=== PATIENT | female | born 1960 | race Caucasian/White ===

== ENCOUNTER 2019-01-23 14:30 | Inpatient (IN) | payer OTHER ==
[~2019-01-23] VITALS: Ht 162.6 cm; Wt 88.5 kg
[~2019-01-23 14:30] MED LIST: ASPIRIN325 PO; COPAXONE20 MG/SYR PO; EC-NAPROSYN500 M1 PO; FLEXERIL PO; GABAPENTIN 100100 MG PO; GLATIRAMER20 MG/1 ML SUBQ; IBU800 MG PO; IBUPROFEN 200200 M1 PO; LASIX 20 MG TAB20 MG PO; LEVAQUIN 500 M500 M3 PO; LISINOPRIL10 MG PO; LISINOPRIL20 MG PO; MEDROLDOSEPACK PO; NEURONTIN 300M300 M2 PO; NEURONTIN300 MG PO; OMEPRAZOLE40 MG PO; PRILOSEC 20 MG20 MG PO; PROAIR HFA8.5 GM INH; PROMETHAZINE V473 ML PO; TESSALON PERLE100 MG PO; TRAZODONE 150150 M1 PO; TRAZODONE HCL100 MG PO; TYLENOL P.M. E1 EAC3 PO; TYLENOL PM EX-1 EACH PO; VALIUM5 MG PO; VITAMIN D400 UNI1 PO; ZOLOFT 50 MG TA50 M1 PO
--- NOTE | 2019-01-23 17:41 | NUR ---
THE PATIENT IS A 58 Y.O FEMALE PRESENTED TEARFUL AND EMOTIONAL ABOUT BEING HERE. SHE WAS GIVEN ASSURANCE BY STAFF THAT SHE WAS GOING TO BE ALRIGHT. SHE LEFT HER GLASSES AT HOME AND SAID THAT SHE CAN HARDLY SEE AND WILL CALL HOME TOMORROW FOR HER FAMILY MEMBER TO BRING THEM TO HER. SHE WAS DISHEVELED AND SHE ASKED FOR A CLEAN GOWN. THE FIRE DEPARTMENT TRANSPORTED HER TO THE HOSPITAL. SHE WAS GLAD TO BE HERE. SHE WAS SUFFERING MENTAL STATUS CHANGES BECAUSE OF ALL THE PROBLEMS AT HOME. SHE IS INDEPENDENT AND AMBULATES WITH A STEADY GAIT. SHE HAS BATH ROOM PRIVILEGES. THE PATIENT IS ON A REGULAR DIET BUT DID NOT EAT DINNER THIS EVENING. SHE STATED SHE DID NOT LIKE THE FOOD THAT WAS SERVED. SHE IS RESTING IN BED AT THIS TIME. ORIENTED X4. CALM, COMPLIANT AND COOPERATIVE. QUIET AND COOPERATIVE.
[2019-01-23 20:00] VITALS: BP 174/82
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
[2019-01-24 03:05] VITALS: BP 174/82
--- NOTE | 2019-01-24 05:53 | NUR ---
SLEPT 6.8 HOURS OVERNIGHT. HAD BM ON THE MORNING OF 01/24.
[2019-01-24 08:58] VITALS: BP 152/81
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
[2019-01-24 20:08] VITALS: BP 149/74
[2019-01-24] MEDS ORDERED: TAPAZOLE10 MG PO (21:44)
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
--- NOTE | 2019-01-25 00:51 | NUR ---
Care assumed of patient at 1915: Patient sitting in day room at start of shift. Patient alert and oriented x4. Patient was tearful at the start of the shift. Patient reported to nurse that she is feeling stressed about needing to take care of her mother and her mother's home. Also reporting that she is sad watching and observing other patients on the unit. Patient was able to speak one on one with nurse and appeared to be feeling better afterwards. Patient was then happy, smiling, interactive with staff. Patient labile throughout the evening. Patient sat in the dayroom and did not isolate self to her room this evening. Patient did report that she takes Methimazole 5mg po daily when at home. SYDNIE Burgos notified. Orders obtained for thyroid panel in AM. Also noted that Dr. Easton has ordered other labs for the AM. Med rec updated to include reported medication. MD will eval medication need after labs obtained. Patient also reported that she has an inhaler at home to use for seasonal allergies. SYDNIE Burgos also ordered PRN nebulizer treatments. Patient did receive nebulizer treatment from RT and reported that she felt "much better". Patient took medication whole without difficulty. Ate 100% HS snack. Denies SI/HI/AH/VH. No s/s of delusional or paranoia behaviors. However, information obtained from patient this shift and information in H&P does not appear to match. Patient reports that she has not smoked cigarettes for the past 3 months. She is proud of herself for this. Patient was able to retire to bed around 2230. Patient provided nurse with her request for lunch tomorrow. Patient educated that she can provide her requests to the nurse during breakfast or morning groups. Patient informed nurse that she sleeps through breakfast and morning groups and only gets up before lunch due to her MS. Patient strongly encouraged that she will need to attend all groups. Patient seemed frustrated with encouragement but was not aggressive.
[2019-01-25 09:50] VITALS: BP 158/79
[2019-01-25 11:39] VITALS: BP 158/79
--- NOTE | 2019-01-25 15:50 | NUR ---
THE PATIENT HAS BEEN VERY QUIET AND COOPERATIVE. SHE HAS BEEN SITTING IN THE DAY ROOM WATCHING TV AND ATTENDING THE GROUPS. SHE ALSO IS VERY FRIENDLY INTERACTING WITH STAFF AND TALKING TO THE OTHER PATIENTS. SHE DENIES SI AND HI. SHE IS AMBULATORY WITH A STEADY GAIT AND HAVE BRP. THE PATIENT IS INDEPENDENT. SHE IS QUITE PLEASANT AND ASK TO HELP WITH THE OTHER PATIENTS BUT STAFF TELLS HER SHE CANNOT HELP US. CONTINUE TO MONITOR THE PATIENT.
[2019-01-25 19:23] VITALS: BP 143/87
[2019-01-25 23:32] VITALS: BP 158/79
--- NOTE | 2019-01-26 03:07 | NUR ---
PT OUT IN DAY AREA AT BEGINNING OF SHIFT. AFTER SNACKS, PT TOOK HS MEDS W/O PROBLEM. QUIET AND COOPERATIVE. LITTLE INTERACTION WITH STAFF OR PEERS. COMMUNICATES ONLY WHEN SHE NEEDS SOMETHING. AFFECT ANIMATED. HAS SLEPT WELL THROUGH THE NIGHT.
[2019-01-26 08:58] VITALS: BP 143/72
[2019-01-26 09:07] LABS: HIV ANTIBODY Non Reactive (Non Reactive)
--- NOTE | 2019-01-26 13:03 | NUR ---
Nutrition: Pt assessed due to consult received for pt request (interested in other food choices). Admitted: unspecified psychosis. Pt is not liking the meals. Met in day area to individualize future meals. Brainstormed desired changes to the next 3 meals (dinner 01/26, breakfast and lunch 01/27). Plan includes a variety of chicken salad/PB&J sandwiches with other sides like cottage cheese, banana, yogurt, etc. Pt requests yogurt with every meal, or at least BID with lunch and dinner. Pt very thankful for RD time. No appetite issues otherwise. Will remain low nutrition risk.
--- NOTE | 2019-01-26 17:00 | NUR ---
FULL RANGE AFFECT-DENIES SI/SH/HI. ATTENDING SCHEDULED ACTIVITIES-DENIES C/0 PAIN/DISCOMFORT. GAIT STEADY WITHOUT ASSISITVE DEVICES
--- NOTE | 2019-01-26 17:37 | NUR ---
[employer] came today to screen pt for Medicaid. SW team will continue to follow pt during her stay.
[2019-01-26 19:58] VITALS: BP 156/71
--- NOTE | 2019-01-27 00:13 | NUR ---
Care assumed of patient at 1915: Patient sitting in dayroom at start of shift. Patient alert and oriented x4. Patient has been reviewing her d/c paperwork that she states the doctor provided her. Patient also coloring and working on word search puzzles. Patient happy, smiling. Patient interactive with staff appropriately. Patient took HS medication whole without difficulty. Patient denies SI/HI/AH/VH/anxiety/depression. No s/s of delusional or paranoia behaviors. Patient reports that she is going home tomorrow and is excited about that. Patient up ad lizzeth without assistive devices and completes ADLs independently. Patient ate 100% HS snack. Patient did request PRN nebulizer treatment which was provided by RT. Lungs CTA to all lobes, no cough present. Patient upset with staff when TV was turned down at 10pm but was easily re-directed. Patient is still awake, working on word search puzzles in dayroom. Patient declines needing any medication to help her sleep and states that she usually stays up late and sleeps in until around noon.
[2019-01-27 09:15] VITALS: BP 156/71
--- NOTE | 2019-01-27 15:45 | NUR ---
SW and psych doctor contacted pt's son and DPOA Song Richards to discuss discharge planning. The psych doctor explained that it would not be a good plan for pt to go home where she lives with 14 cats and her boyfriend who she has identified as an alcoholic. The psych doctor also advised against her living with her mom since her mom has great care needs also. WP agreed. He said he will take the weekend to come up with a plan. SW team will continue to follow pt during her stay.
[2019-01-27 17:10] LABS: SYPHILIS AB Non Reactive (Non Reactive)
--- NOTE | 2019-01-27 18:15 | NUR ---
PT. SITTING ON THE UNIT MUCH OF THE AFTERNOON. SHE WAS COLORING AND TALKING WITH HER NEW ROOMMATE. SHE ALSO ATTENDED GROUPS.
[2019-01-27 20:26] VITALS: BP 145/77
--- NOTE | 2019-01-27 22:17 | NUR ---
Care assumed of patient at 1915: Patient sitting in dayroom at start of shift. Patient coloring and watching TV. Patient alert and oriented x4. Patient smiling and happy. Patient interacting well with staff and other patients. Patient is extremely happy that she received a new roomate today. Patient going about the unit to other staff introducing her new roomate. Almost hyperactive to an extent. Patient denies pain or discomfort. Patient did request PRN nebulizer treatment due to the "dry atmosphere". Patient denies SI/HI/AH/VH. Denies anxiety or depression. No s/s of delusional or paranoia behaviors. Patient independent with ADL completion. Patient has a packet that includes part of her medical record that she takes around with her. Patient did ask for her labs to be printed for her so she could add them to her "book". Observed that patient has numerous writings on several pages that did not make sense to this nurse. Patient stated "oh, it's just my notes". Patient took HS medication without difficulty. Ate 100% HS snack. Patient reitred to bed at a reasonable hour this evening and is currently resting in bed.
[2019-01-28 07:45] VITALS: BP 132/81
--- NOTE | 2019-01-28 12:53 | NUR ---
Has been up in dayroom, she is alert and oriented x4, she is smiling and somewhat hyperverbal, she is cooperative with cares, med christa perkins, Dr. Easton here, new orders received for her thyroid meds, called her home pharmacy to verify her meds, especially for thyroid meds, she eats well and has attended groups today. Continue to monitor for safety and behaviors.
--- NOTE | 2019-01-28 19:56 | NUR ---
1545 Report received from ANTHONY Smith at approximately 1500. Prior to that pt. had been in day room relaxing and visiting with peers/staff. Conversive without s/o distress. construction secretary reports that pt was in her room with back pain and was in bathroom very upset and crying. I went to assess her and she was visibly upset, crying and stating that she had back pain that went across her upper back and rated it a 9/10. Moved to bed and she stated that she has not been getting all her medications for her thyroid since she has been here and that she has noticied for the past several days she has had tingling in her left arm and now she is having pain that starts in her R shoulder and goes around her mid and upper back. BP per L arm 182/82 with HR 76 and regular per auscultation. Repeat BP 149/75. As I was assessing her she stated she wanted to go to the ER ana m. Something wasn't right. "It's my right to go to the ER." Behavior and pain escalated with her stating pain was a 9 and repeatedly demanding to go to the ER. Dr. Easton and nursing coagulating drying supervisor notified. Stat EKG ordered with labs. Nursing coagulating drying supervisor notified Dr. Lou who ordered Morphine and nitroglycerine. Pt. allergic to morphine so not administered. Pt. states pain much worse and that she is very frightened. Nitroglycerine given by nursing coagulating drying supervisor/support RN at 1544 BP 139/82 with HR 90s per pulse ox and sats 97-100%. Unable to obtain EKG d/t persistent shaking of R arm and severe anxiety. 1550: BP 126/72, HR 103, sat 97% and RR40. Spoke with Dr. Easton and obtained order for Ativan 2mg IM and Ondansetron 4 mg IM due to nausea. Pt. requesting to go to ER multiple times. 1700 Pt demanding to go to ER and speak to family multiple times. Ativan and ondansetron given per order. Dr. Easton aware. Obtained EKG which Dr. Easton reviewed and requested to be faxed to ER for them to review. Pt. continues to demand to go to ER and wants to sign out AMA. Dr. Easton and nursing coagulating drying supervisor notified. Dr. Easton states that he wants AMA in writing and then he will institute 72 hr hold. Pt. talked with son and TRISTON and directed them to meet her at the ER. They called lockstitch front maker and told secretary to the vice president that they wanted to be called back with an update. When called phone number provided it was not working. Verified phone number with pt. and she stated it was correct and asked me to call them at another phone number. Continued to monitor patient with 5-15 min BP. Pt.continued to demand to be brought to the ER and wrote note stating that she wanted to go to ER AMA. When Dr. Easton notified he stated that she had too much dementia to leave and would have to stay on unit t/o weekend despite note. Pt. told by son that they wouldn't come since she was not going to ER. Pts demeanor totally changed and she started to make jokes about pain and became very accepting of staying on behavioral health unit. Stated she wanted to go out to dining room to eat dinner. Reports that that pain has decreased to a 6 and continues to spasm. Dr. Lou notified. Toradol order x 1 obtained. 184 Sitting at table without s/o distress conversing with peers and staff.
[2019-01-28 20:04] VITALS: BP 126/61
[2019-01-28 21:15] VITALS: BP 126/61
--- NOTE | 2019-01-29 03:15 | NUR ---
PT OUT IN DAYROOM AND INTERACTING APPROPRIATLY WITH STAFF AND PEERS. ANIMATED AND PLAYFUL WITH STAFF. TOOK HS MEDS ORDERED. NO FURTHER C/O PAIN AT THIS TIME. HAS SLEPT WELL THROUGH THE NIGHT TO THIS POINT IN THE AM.
[2019-01-29 07:35] VITALS: BP 128/68
[2019-01-29 10:08] VITALS: BP 128/68
--- NOTE | 2019-01-29 10:15 | NUR ---
0701 Report received from overnight shift, patient ate breakfast took medication without incidence. Patient cooperative, calm, particpates in groups.
--- NOTE | 2019-01-29 13:19 | EKG ---
[address] [address] ELECTROCARDIOGRAM REPORT Name: [facility] Room #: 520A-A ADM IN M.R.#: [id number] Admission: 01/23/19 Attend Phys: Noble Easton DO Discharge: Date of : 64 Report #: [id number] THIS REPORT FOR: //name// [facility] Test Date: 2019-01-28 Test Time: 16:42:38 Pat Name: [facility] Department: Room: 520A A Gender: F Leather Whitener: Behzad OCONNELL : 1960 Requested By: Noble Lou Order Number: [id number] MD: Feng Barber Measurements Intervals [place] Rate: 83 P: 43 [place]: 111 QRS: 40 QRSD: 89 T: 71 QT: 376 QTc: 442 Interpretive Statements Sinus rhythm Borderline short [place] interval No previous ECG available for comparison Electronically Signed On 01-29-2019 13:19:13 CLIENT SUPPORT COORDINATOR by Feng Barber [email or web address] <ELECTRONICALLY SIGNED> By: Feng Barber MD, [facility] 01/29/19 1319 1642 41 Feng Barber MD, FACC /EPI
[2019-01-29 19:53] VITALS: BP 127/60
--- NOTE | 2019-01-30 00:38 | NUR ---
Care assumed of patient at 1914: Patient seated in day room coloring at start of shift. Patient alert and oriented x4. Patient compliant with nursing assessment. Patient labile and irritable. Patient reported pain 10/10 to her entire body. Reports that receiving her injections for MS is the only thing that helps. Reports that her son is out of town and nobody else is able to bring her Copaxone injection vials. Patient states that PRN Tylenol and Ibuprofen did not help her pain. Patient appears tense, flat, not as happy as she has been over the last couple nights. SYDNIE Martin notified of increased pain. He requested to notify SYDNIE Jones for pain medication management. SYDNIE Jones gave order for [place] PRN. Patient asked which medication is usually helpful in managing her pain. Patient became sarcastic and rude to nurse at that time. Patient re-directed and was provided [place] PRN. At 1 hour follow up, patient stated pain reduced to 8/10, "if that". Patient denies SI/HI/AH/VH. No s/s of delusional or paranoia behaviors. Patient reported that she was having acid reflux and requested medication. Patient offered PRN Mylanta. Patient stated that would cause her to throw up and she needed an injection of Zofran. Educated patient that she can have a pill of Zofran. Patient accepted that. Patient then reported that she was ready for her injection. Nurse questioned patient as to what she was referring too. Patient stated she needed an injection of Ativan to help her sleep because she is anxious. SYDNIE Martin notified and order obtained for Trazodone 50mg po 1x dose now. Patient accepted this medication. Patient complained that nurse gave her bedtime medications too early which is why she can't sleep. Educated patient that this nurse is the one that gave her her medication and it was 2044 when those were administered. Patient then started smiling and apologizing. Patient has been pacing the unit. Needed re-directed to leave her room light off due to her roommate sleeping. Told her she can read in the dayroom if she would like too. Patient agitated, irritable, attention seeking and manipulative this shift. Boundaries required to be set on several occasions. Patient recently retired to bed and was smiling and laughing when she told staff kelly.
[2019-01-30 07:48] VITALS: BP 109/59
[2019-01-30 09:01] VITALS: BP 109/59
--- NOTE | 2019-01-30 10:45 | NUR ---
ASSUMED CARE AT 0700 THIS MORNING. PT. HAS BEEN ON THE UNIT INERACTING APPROPRIATELY WITH PTS. PT. C/O "MS" PAIN GLOBALLY TODAY. MORNING MEDICATIONS GIVEN TO HER. WHEN ASKED ABOUT HER PAIN SHE GAVE A WINK AND A NOD AND STATED, "I'M GOING HOME TODAY AND I WILL TAKE CARE OF IT". STATED HE BELIVED PT. WOULD BE D/C'S TOMORROW. TOOK HER MORNING MEDICATIONS WITHOUT INCIDENCE. EATING MEALS ON THE UNIT. ABLE TO PROVIDED HER OWN ADL'S AND SELF CARE. ATTENDING GROUPS.
[2019-01-30 14:21] VITALS: BP 109/59
--- NOTE | 2019-01-30 14:23 | NUR ---
ELDER attended a family meeting with pt, her son Koko, and psych doc. During this meeting d/c plans were discussed. Koko said pt cannot live with him, however, he believes now she is sober she would do well with her mother. ELDER and psych doctor expressed concern on pt going home to her boyfriend who is an alcoholic and lives with 14 cats. Pt expressed understanding that it is crucial she stay away from him, and away from alcohol and drugs. She agreed to receive services from [facility]. Discharge is set for 01/31 @1300. ELDER team will continue to follow pt during her stay.
[2019-01-30 20:17] VITALS: BP 136/69
--- NOTE | 2019-01-31 05:32 | NUR ---
1909-Report received from day shift nurse and care assumed. She talked about going home tomorrow, helped other peers and was socialable with others. She had a blunted affect mostly. She slept well tonite.
[2019-01-31 08:59] VITALS: BP 145/67
--- NOTE | 2019-01-31 09:23 | NUR ---
ASSUMED CARE AFTER REPORT THIS MORNING 0700. PT ALERT AND ORIENTED X 4. ABLE TO AMBULATE AROUND INDIPENDENTLY. EXCITED THAT SHE IS GOING HOME TODAY. VERY JOVIAL AND COOPERATIVE. GOOD APPETITE. MEDICAITONS TAKEN WITHOUT ANY PROBLEM. CALM AND COOPERATIVE. ATTENDEND GROUP THERAPY. WILL CONTINUE WITH THE PLAN OF CARE.
[2019-01-31 09:56] VITALS: BP 145/67
[2019-01-31 11:12] VITALS: BP 109/59
[2019-01-31] MEDS ORDERED: NEURONTIN 300300 M1 PO (12:44)
[2019-01-31] MEDS ORDERED: TRAZODONE 150150 M1 PO (12:45)
[2019-01-31] MEDS ORDERED: ZOLOFT100 MG PO (12:45)
[2019-01-31] MEDS ORDERED: FOLIC ACID1 MG PO (12:47)
[2019-01-31] MEDS ORDERED: VITAMIN D5000 UNIT PO (12:47)
--- NOTE | 2019-01-31 14:07 | NUR ---
DISCHARGE INSTRUCTIONS REVIEWED WITH PT AND SON-STATES UNDERSTANDING AND DENIES QUESTIONS RE MEDICATIONS AT TIME OF DISCHARGE AND FOLLOW UP RECOMENDATIONS. DENIES SI/SH/HI AT TIME OF DC-DENIES C/O PAIN/DISCOMFORT
--- NOTE | 2019-02-01 22:04 | D ---
[facility] [place] [address] [place] [address] DISCHARGE SUMMARY Name: [facility] Room #: 520A-A [facility] IN M.R.#: [id number] Admission: 01/23/19 Attend Phys: Noble Easton DO Discharge: 01/31/19 Date of : 64 Report #: [id number] THIS REPORT FOR: //name// CC: Noble Olveradivina DATE OF SERVICE: 01/31/2019 INPATIENT PSYCHIATRIC DISCHARGE SUMMARY ATTENDING PHYSICIAN: Noble Easton DO. APPARATUS LINEMAN: Jn Park MD DISCHARGE DIAGNOSES: Major neurocognitive disorder due to multiple etiologies, namely multiple sclerosis; chronic alcoholism; unspecified psychosis, resolved. ADDITIONAL DIAGNOSES: Include hypertension; multiple sclerosis, questionable compliance with Copaxone; gastroesophageal reflux disease. DISCHARGE DIET: Regular. ACTIVITY LEVEL: As tolerated. AFTERCARE: [facility] in [place], [place]. The patient will need to walk in for intake. REASON FOR PSYCHIATRIC ADMISSION: Back on 01/23/2019 is as follows: The patient accepted from the [facility] Emergency Room. She had recently been hospitalized there from through . On the day of admission, she was brought in by police for bizarre behavior, going out of clothes in the weather, kind of forcefully entered her mother's home. HOSPITAL COURSE: The patient was admitted to Geriatric Psychiatry Unit. The patient demonstrated cognitive impairment, namely [address] Romero was consulted. She does meet criteria for major neurocognitive disorder. The patient had some good days and bad days during admission. This past weekend, she was wanting to leave against medical advice, which was not permitted due to her dementia. MEDICATIONS USED IN THIS ADMISSION: Gabapentin 300 mg 3 times a day; trazodone 150 mg at bedtime used for sleep; sertraline 100 mg twice a day for depression; folic acid, she was supplemented on it, as she is deficient, at 1 mg; vitamin D 5000 International Units p.o. daily; continue aspirin 325 mg daily, Copaxone 20 mg daily; lisinopril 20 mg p.o. daily; omeprazole 1 capsule oral twice a day and methimazole, we found out later during the admission, she was supposed to be [facility] [address] [place] [address] DISCHARGE SUMMARY Name: [facility] Room #: 520A-A [facility] IN [facility].#: [id number] Admission: 01/23/19 Attend Phys: Noble Easton, Discharge: 01/31/19 Date of : 64 Report #: [id number] taking that for hyperthyroidism. She did have a low TSH and has continued on 10 mg p.o. twice per day. LABORATORY DATA: This admission, TSH 0.009, 25-hydroxy vitamin D 20.2. Troponin less than 0.06. She did seem in chest pain. EKG was normal as well was troponin. Syphilis and HIV 1 and 2 were negative. This was done as part of the dementia workup. The patient's head CT from September, was unremarkable CT of the brain. On the day of discharge, the patient was not suicidal or homicidal, in stable condition. PHYSICAL EXAMINATION: VITAL SIGNS: At time of discharge are as follows: Temperature 36.9, pulse 82, respirations 16, BP 109/69, O2 sat 99%. MUSCULOSKELETAL: Normal gait and station. MENTAL STATUS EXAMINATION: This is a well-developed, age-appearing female appearing stated age. Attention fair. Concentration fair. Speech is normal rate and tone. Thought process linear.. Thought content focused on discharge. Mood and affect congruent, constricted. Denied SI or HI. Denied hopelessness, helplessness. Memory not formally tested today. Insight limited. Judgment fair to limited. Fund of knowledge below average. We had a family meeting with her son and arrangements have been made for the patient to stay with her mother. If not ideal, the son will step up to caregiving role. For a longer run, the patient will need at least [facility] placement, I feel. <ELECTRONICALLY SIGNED> By: Noble Easton DO 02/01/192203 21 46 Noble Easton DO /nt
== END 2019-01-31 13:30 | disposition home or self-care (01) | DRG 885 ==
LOC: SBH
PROVIDERS: ADMIT Psychiatry & Neurology Psychiatry
DX: F29 Unspecified psychosis not due to a substance or known physiological condition (principal); R45.851 Suicidal ideations; G35 Multiple sclerosis; F02.80 Dementia in other diseases classified elsewhere, unspecified severity, without behavioral disturbance, psychotic disturbance, mood disturbance, and anxiety; I10 Essential (primary) hypertension; Z60.2 Problems related to living alone; K21.9 Gastro-esophageal reflux disease without esophagitis; F41.1 Generalized anxiety disorder; F32.9 Major depressive disorder, single episode, unspecified; F13.988 Sedative, hypnotic or anxiolytic use, unspecified with other sedative, hypnotic or anxiolytic-induced disorder; Z72.89 Other problems related to lifestyle; Z88.6 Allergy status to analgesic agent; Z79.82 Long term (current) use of aspirin; Z79.899 Other long term (current) drug therapy; Z82.49 Family history of ischemic heart disease and other diseases of the circulatory system
CPT/HCPCS: 10880